=== PATIENT | male | born 1995 | race Caucasian/White ===

== ENCOUNTER 2025-03-23 22:47 | Emergency (ER) | payer BC ==
[2025-03-23] MEDS ORDERED: LIDOCAINE 1% 20 ML MDV ONE (23:05)
[2025-03-23] MEDS ORDERED: TDAP (DIPHTH,PERTUSS(ACELL),TET VAC) 0.5 ML VIAL IMVAC ONE (23:06)
[2025-03-23] MEDS ORDERED: DOXYCYCLINE 100 MG CAP PO ONE (23:25)
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
[2025-03-24 02:57] VITALS: TEMP 97.8
[2025-03-24 03:01] VITALS: BP 111/79; O2SAT 100
--- NOTE | 2025-03-24 03:46 | RAD REPORT ---
EXAM: XR Left Tibia and Fibula, 2 Views CLINICAL HISTORY: lacerations TECHNIQUE: Frontal and lateral views of the left tibia and fibula. COMPARISON: No relevant prior studies available. FINDINGS: Bones/joints: Unremarkable. No acute fracture. No dislocation. Soft tissues: Soft tissue dressing along the dorsal lateral mid to distal lower leg. No radiopaqu e foreign body. IMPRESSION: Allowing for soft tissue dressing along the dorsal lateral mid to distal lower leg, no identifiable r adiopaque foreign body. No acute fracture. Electronically signed by: Neptali Brooks MD 03/24/2025 03:27 AM CDT Due to temporary technical issues with the PACS/[employer] reporting system, reports are being red d by the in-house radiologist without review as a courtesy to ensure prompt reporting. The interpreting radiologist is fully responsible for the content of the report. Transcribed Date/Time: 03/24/2025 3:46 AM
== END 2025-03-24 02:28 | disposition home or self-care (01) ==
LOC: EDSEX 22:47 → ER 22:47
DX: S81.812A Laceration without foreign body, left lower leg, initial encounter (principal); W22.8XXA Striking against or struck by other objects, initial encounter; Z23 Encounter for immunization
CPT/HCPCS: 12005 ×2; 73590; 90715; 96372; 99284; J2003; 12002